=== PATIENT | male | born 1960 | race Caucasian/White ===

== ENCOUNTER 2018-07-09 13:20 | Emergency (ER) | payer OTHER, MEDICAID ==
[2018-07-09] MEDS ORDERED: NS 500 ML IV ONE (14:16)
--- NOTE | 2018-07-09 14:29 | EDPHY ---
H & P Smoking Status: Never smoked Time Seen by Provider: 07/09/18 13:38 HPI/ROS: HPI Shortness of breath, not feeling well. 57-year-old male by private vehicle with his significant other. This patient has a history of ankylosing spondylitis and chronic pain. He was prescribe Cymbalta about 2 weeks ago for treatment of his chronic pain. He reports he took 2 doses of this. He reports that he did not react well to the medication and states that after he took the medication he felt weak, achy all over and short of breath. He reports that the symptoms have persisted although he has not taken this medication now in about 2 weeks. He had an echocardiogram done by his insulating machine operator, Dr. Lawrence Jang, at [facility] about a week ago. He was told this was normal. He presents the emergency department today concerned that his blood pressure has been elevated, he continues to feel achy and have intermittent shortness of breath. ROS: Constitutional: No fever, no chills. As above. Eyes: No discharge. No changes in vision. ENT: No sore throat. No nasal congestion or rhinorrhea. Respiratory: No cough. As above. Cardiac: No chest pain, no palpitations. Gastrointestinal: No abdominal pain, no vomiting, no diarrhea. Genitourinary: No hematuria. No dysuria or increased frequency with urination. Musculoskeletal: As above. Skin: No rashes. Neurological: No headache. No focal weakness or altered sensation. Past medical history: Coronary artery disease/angina, ankylosing spondylitis, migraine headaches, hypoglycemia, abdominal hernias, C5/C6 fusion. As above. Social history: Smokes marijuana. Denies alcohol. Denies other IV drugs or street drugs. Here with significant other. Physical Exam: General Appearance: Alert, no distress. This patient is responding to questions appropriately and in full sentences. This patient appears well- hydrated and well-nourished. Eyes: Pupils equal and round no pallor or injection. No lid edema, erythema or injection. Respiratory: There are no retractions, lungs are clear to auscultation with good air movement bilaterally. No tachypnea. No JVD. Cardiovascular: Regular rate and rhythm. No murmur. Gastrointestinal: Abdomen is soft and nontender, no masses, bowel sounds normal. No focal tenderness at McBurney's point. No Keys sign. Neurological: Motor sensory function is grossly intact. Cranial nerves are normal. Gait is normal. Skin: Warm and dry, no rashes. Musculoskeletal: Neck is supple and nontender. Extremities are symmetrical. All joints range without pain or impingement. Psychiatric: No agitation. No depression. Database: EKG: EKG time is 1:46 p.m.; EKG shows a narrow complex normal sinus rhythm with a ventricular rate of 84. Left axis deviation noted. The MO, QRS, QT intervals are within normal limits. There are no ST-T wave changes indicative of ischemic or injury pattern. No evidence of right heart strain. Interpreted by me. Imaging: Chest x-ray PA and lateral; the cardiac mediastinal silhouette is unremarkable. No evidence of infiltrate or pneumothorax. No acute cardiopulmonary disease process noted. Interpreted by me. Procedures: Emergency department course: Triage vital signs reviewed. He is moderately hypertensive. Vital signs are otherwise normal. EKG obtained and reviewed by myself. IV placed. He was placed on a athletic monitor. 3:30 p.m., results of emergency department testing still pending at this time. Care turned over to Dr. Ashton. Differential Diagnosis: The differential diagnosis on this patient includes but is not limited to viral syndrome, CHF, acute coronary syndrome, pulmonary embolism. This represents a partial list of diagnoses considered. These considerations are based on history , physical exam, past history, reassessment and diagnostic testing. (Ag Morris) Constitutional: Initial Vital Signs Temperature (C) 36.9 C 07/09/18 13:40 Heart Rate 93 07/09/18 13:40 Respiratory Rate 16 07/09/18 13:40 Blood Pressure 141/108 H 07/09/18 13:40 O2 Sat (%) 97 07/09/18 13:40 O2 Delivery Mode Room Air Allergies/Adverse Reactions: acetaminophen [From Tylenol] Allergy (Verified 07/09/18 13:37) ampicillin Allergy (Verified 07/09/18 13:37) duloxetine [From Cymbalta] Allergy (Verified 07/09/18 13:39) erythromycin base [Erythromycin Base] Allergy (Verified 07/09/18 13:37) ibuprofen [From Motrin] Allergy (Verified 07/09/18 13:37) Penicillins Allergy (Verified 07/09/18 13:37) Home Medications: Medication Instructions Recorded Aspirin [Aspirin EC] 1,000 mg PO BID PRN 06/23/14 Esomeprazole Magnesium [Nexium] 40 mg PO DAILY 06/23/14 HYDROmorphone HCL [Dilaudid 4 mg 4 mg PO Q6 PRN 06/23/14 (RX)] Propranolol HCl [Inderal 20mg (RX)] 20 mg PO DAILY 06/23/14 Rizatriptan Benzoate [Maxalt 10mg] 10 mg PO ONETIMEPRN PRN 06/23/14 Albuterol [Proventil Inhaler HFA 2 puffs IH QID #1 mdi 07/09/18 (*)] Botox 07/09/18 Oxygen 07/09/18 predniSONE [Prednisone] 30 mg PO BID #30 tablet 07/09/18 Medical Decision Making - Diagnostics Imaging Results: Imaging Impressions Chest X-Ray 07/09/18 14:16 Impression: No acute abnormality. Differential Diagnosis: Differential diagnosis includes but is not limited to the following: ACS, myocardial infarction, pneumothorax, pleurisy, pulmonary embolus, CHF, Pneumonia, bronchospasm, Asthma, anxiety, muscle strain. (Shai Ashton) Other Provider: Care assumed at change of shift. D/w off going physician. Chart reviewed. Pt interviewed and examined. He has been having problems with sensation of shortness of breath as well as general fatigue and generalized achiness across the chest and shoulders for approximately 10-14 days. He notes that started about the same time he started Cymbalta away only took 2 doses as noted previously. Symptoms have continued nonetheless. He has never really had any lung problems per se has never been known to have reactive airway disease or PE or pneumonia. Whereas he has been having some shortness of breath there has been no cough or phlegm. He has had no unilateral leg swelling or use of a brace nor has there been any surgery. In addition, there is no prior personal history of DVT PE or family history of hypercoagulable syndrome. He notes that his mother of COPD which was induced by her having ankylosing spondylitis. He has never smoked per Se but it to his knowledge he has never been worked up or had any baseline pulmonary function testing. He is feeling quite a bit better with less discomfort since the Dilaudid that he received here. There was some question as to whether he was running out of Dilaudid. That is not the case. Evidently he did fill his most recent prescription on July 02. Further, I discussed the case with Yesica Herzog, his pain management nurse practitioner. It was noted that she gave him 2 prescriptions in the visit approximately May 25 which he carrying for 2 months. He notes that he has been taking the Dilaudid every day as usual custom but is simply really does not make the pain all the much better this time around. I did inquire a on the [place] drug monitoring program and that is where I was able to see that he filled his Dilaudid on the Further, he relates that there was a trial of prednisone in mid May as a means to try to decrease his requirement of Dilaudid. There is no post prednisone relapse with respect to his ankles spondylitis. Noted help. The Cymbalta was tried likewise to try to decrease his requirements for Dilaudid. I did clarify with him the status of this prior history of heart attack. He relates that he was in an [facility] and had some trouble breathing that night. When he went to the hospital next day in 2004 he was told he had a heart attack. However I would could not discern as to whether he was there for while. He reports his last nuclear stress test was 5 years ago. General Appearance: Alert, no distress. Afebrile. Normal phonation. No respiratory distress. Eyes: Pupils equal and round no pallor or injection. No icterus ENT, Mouth: Mucous membranes moist Pharynx without erythema or exudate. TM Clear. Neck: No adenopathy. Supple. No JVD. Trachea in midline. Respiratory: There are no retractions, while there are no rhonchi, his by bowel loops or rales that somewhat improved coughing. Peak flow at bedside seems to be slightly prolonged thus will do a peak flow monitoring device Chest wall: Nontender to palpation. No crepitus. Cardiovascular: Regular rate and rhythm, no murmur Abdomen: Soft and nontender, no masses, bowel sounds normal. Neurological: Ox3. No motor weakness. Sensation intact. Gait nl. Skin: Warm and dry, no rashes. Musculoskeletal: No joint swelling. Extremities: No edema. Homans sign negative. No cords. Psychiatric: Normal affect. Patient is oriented X 3. There is no agitation Laboratory evaluation here reveals following: Normal urinalysis Normal CBC Electrolytes stable though slight hypokalemia that does not explain his symptoms Normal LFTs Negative CPK Negative diameter Negative troponin Negative BNP Normal TSH Chest x-ray with borderline cardiac silhouette but no interstitial disease He has no risk factors for DVT PE. His perc score is 1 by virtue of his age. A D-dimer effectively makes this a very low probability PE. Thereby would only consider pursuing this is symptoms accelerate. His EKG is essentially normal and the troponin is 0. Nothing per se about his story or symptoms suggest unstable angina. Peak flow was performed at 375 which is 65% predicted. Thereby he was given a neb a DuoNeb as well as discussed using prednisone for the next week as well as outpatient Proventil treatment. He does seem somewhat anxious. That would be understandable in view of the acceleration of his symptoms and persistence. However, he did not feel that that was a significant potential, as he never has had problems before like this. He is to follow up within the week. (Shai Ashton) - Data Points Laboratory Results: 07/09/18 07/09/18 07/09/18 16:12 14:49 14:40 POC Sodium 139 mEq/L mEq/L (135-145) POC Potassium 3.2 mEq/L L mEq/L (3.3-5.0) POC Chloride 108.0 mEq/L mEq/L (97-110) POC Total CO2 21 mEq/L L mEq/L (22-31) POC BUN 9 mg/dL mg/dL (7-23) POC Creatinine 0.7 mg/dL mg/dL (0.7-1.3) POC Glucose 101 mg/dL H mg/dL (70-100) POC Calcium 10.3 mg/dL mg/dL (8.5-10.4) POC Total Bilirubin 0.5 mg/dL mg/dL (0.1-1.4) POC GGT 37 IU/L IU/L (5-65) POC AST 22 IU/L IU/L (17-59) POC ALT 26 IU/L IU/L (21-72) POC Alk Phosphatase 84 IU/L IU/L (38-126) Creatine Kinase POC Troponin I 0.00 ng/mL ng/mL (0.00-0.08) NT-Pro-B Natriuret Pep POC Total Protein 7.8 g/dL g/dL (6.3-8.2) POC Albumin 4.4 g/dL g/dL (3.5-5.0) POC Amylase 25 IU/L L IU/L (30-110) TSH 07/09/18 14:40 POC Sodium POC Potassium POC Chloride POC Total CO2 POC BUN POC Creatinine POC Glucose POC Calcium POC Total Bilirubin POC GGT POC AST POC ALT POC Alk Phosphatase Creatine Kinase 55 IU/L IU/L (0-224) POC Troponin I NT-Pro-B Natriuret Pep 52 pg/mL pg/mL (0-125) POC Total Protein POC Albumin POC Amylase TSH 1.420 uIU/mL uIU/mL (0.465-4.680) Medications Given: Discontinued Medications Albuterol/Ipratropium (Duoneb) 3 ml IH EDNOW ONE Stop: 07/09/18 17:33 Last Admin: 07/09/18 17:34 Dose: 3 ml Albuterol/Ipratropium (Duoneb) 3 ml IH EDNOW ONE Stop: 07/09/18 17:35 Last Admin: 07/09/18 17:56 Dose: Not Given Hydromorphone HCl (Dilaudid) 0.5 mg IVP EDNOW ONE Stop: 07/09/18 15:24 Last Admin: 07/09/18 15:34 Dose: 0.5 mg Sodium Chloride (Ns) 500 mls @ 1,000 mls/hr IV EDNOW ONE PRN Reason: Protocol Stop: 07/09/18 14:45 Last Admin: 07/09/18 14:38 Dose: 500 mls Prednisone (Prednisone) 60 mg PO EDNOW ONE Stop: 07/09/18 17:36 Last Admin: 07/09/18 17:55 Dose: 60 mg Point of Care Test Results: CBC CBC Collection Date 07/09/18 CBC Collection Time 14:40 WBC 8.2 RBC 5.59 HGB 16.5 HCT 49.3 PLT 323 Neut # 4.2 Neut 51.3 LYMPH # 3.1 LYMPH 37.9 Other WBC # 0.9 Other WBC 10.8 MCV 88.2 Chemistry 07/09/18 07/09/18 07/09/18 16:12 14:49 14:40 POC Sodium 139 mEq/L mEq/L (135-145) POC Potassium 3.2 mEq/L L mEq/L (3.3-5.0) POC Chloride 108.0 mEq/L mEq/L (97-110) POC Total CO2 21 mEq/L L mEq/L (22-31) POC BUN 9 mg/dL mg/dL (7-23) POC Creatinine 0.7 mg/dL mg/dL (0.7-1.3) POC Glucose 101 mg/dL H mg/dL (70-100) POC Calcium 10.3 mg/dL mg/dL (8.5-10.4) POC Total Bilirubin 0.5 mg/dL mg/dL (0.1-1.4) POC GGT 37 IU/L IU/L (5-65) POC AST 22 IU/L IU/L (17-59) POC ALT 26 IU/L IU/L (21-72) POC Alk Phosphatase 84 IU/L IU/L (38-126) POC Troponin I 0.00 ng/mL ng/mL (0.00-0.08) POC Total Protein 7.8 g/dL g/dL (6.3-8.2) POC Albumin 4.4 g/dL g/dL (3.5-5.0) POC Amylase 25 IU/L L IU/L (30-110) D-Dimer D-Dimer Collection Date 07/09/18 D-Dimer Collection Time 14:40 D-Dimer (ng/ml) 290 Urine Dip Collection Date 07/09/18 Collection Time 14:25 Specific [place] (1.002-1.030) 1.015 PH (5.0-7.5) 8.5 Leukocytes (Negative) Negative Nitrites (Negative) Negative Protein (Negative) Negative Glucose (Negative) Negative Ketones (Negative) Negative Urobilnogen (0.2-1.0 EU) 0.2 Bilirubin (Negative) Negative Blood (Negative) Negative Departure - Departure Disposition: Home, Routine, Self-Care Clinical Impression: Myalgia, Reactive airway disease that is not asthma Dyspnea Qualifiers: Dyspnea type: shortness of breath Qualified Code(s): R06.02 - Shortness of breath Condition: Good Instructions: Reactive Airways Disease (ED), How Your Lungs Work (ED) Additional Instructions: Avoid particulate such as going outside with the recent smog problems Avoid windy days which have a tendency a stirrup dust as well Prednisone for next 5 days, no taper is needed. Proventil every 6 hr for the next 2 weeks, and as often as every 4 hr as needed for shortness of breath. Take you're peak flow device with you next week when you see your family physician Referrals: Maida Lozano MD [Primary Care Provider] - As per Instructions Prescriptions: Albuterol [Proventil Inhaler HFA (*)] 2 puffs IH QID #1 mdi predniSONE [Prednisone] 30 mg PO BID #30 tablet
--- NOTE | 2018-07-09 14:55 | CPEKG ---
Test Reason : OPEN Blood Pressure : / mmHG Vent. Rate : 084 BPM Atrial Rate : 084 BPM P-R Int : 166 ms QRS Dur : 100 ms QT Int : 350 ms P-R-T Axes : -11 -49 011 degrees QTc Int : 414 ms Sinus rhythm LAD, consider left anterior fascicular block Confirmed by Ag Morris ([id number]) on 07/09/2018 2:55:34 PM Referred By: Confirmed By:Ag Morris
[2018-07-09] MEDS ORDERED: HYDROmorphONE/DILAUDID 2 MG/ML INJ IVP ONE (15:23)
[2018-07-09 16:20] LABS: CREATINE KINASE 55 IU/L (0-224)
[2018-07-09] MEDS ORDERED: IPRATROPIUM/ALBUTEROL 3 ML DEYVIAL IH ONE ×2 (17:32→17:34)
[2018-07-09] MEDS ORDERED: predniSONE 20 MG TAB PO ONE (17:35)
[2018-07-09 18:05] VITALS: BP 128/99
== END 2018-07-09 18:05 | disposition home or self-care (01) ==
LOC: CED 13:20
DX: R06.02 Shortness of breath (principal); R03.1 Nonspecific low blood-pressure reading; G89.29 Other chronic pain; I25.10 Atherosclerotic heart disease of native coronary artery without angina pectoris; F12.90 Cannabis use, unspecified, uncomplicated; Z98.1 Arthrodesis status
CPT/HCPCS: 71046; 93005; 96374; 99285; J1170; J7512; 80048-PO; 80076-PO; 82150-PO; 84484-PO

== ENCOUNTER → 2018-08-05 | Outpatient (CLI) | payer OTHER, MEDICAID | LOC: CIMAGING 10:12 | PROVIDERS: ATTEND Family Medicine | DX: R22.1 Localized swelling, mass and lump, neck (principal); E04.1 Nontoxic single thyroid nodule | CPT/HCPCS: 76536-PO ==

== ENCOUNTER → 2018-08-28 | Outpatient (CLI) | payer OTHER, MEDICAID | LOC: CIMAGING 13:35 | PROVIDERS: ATTEND Clinical Nurse Specialist | DX: Z98.1 Arthrodesis status (principal); M53.2X2 Spinal instabilities, cervical region; M54.6 Pain in thoracic spine | CPT/HCPCS: 72050-PO ==

== ENCOUNTER → 2018-12-31 | Outpatient (CLI) | payer OTHER, MEDICAID | LOC: CIMAGING 10:11 | PROVIDERS: ATTEND Family Medicine | DX: E04.1 Nontoxic single thyroid nodule (principal) | CPT/HCPCS: 76536-PO ==